=== PATIENT | male | born 1960 | race Caucasian/White ===

== ENCOUNTER 2016-09-11 19:37 | Emergency (ER) ==
--- NOTE | 2016-09-11 20:22 | PROVIDER DOCUMENTATION ---
HPI-Abdominal Pain/GI Problem - General Source: patient - History of Present Illness-ABD Nature of Presenting Problems: 56 year old M presents to the ED with a cc of epigastric burning with an onset of 2 weeks ago. PT states that he has had x2 scrambled eggs in 2 days and 1 piece of cheese today. PT states that he has not had a EGD in 2 years. Pt states that he had an esophogeal rupture in 3 years ago due to acid reflux. Pt states that he has been taking Nexium and Prilosec with no relief. Abdominal Pain Onset Location: reports: epigastric Pain Radiation: reports: no radiation Quality of Pain: reports: burning Severity in ED: reports: mild Onset/Duration: reports: other (2 weeks) Timing: reports: still present Activities at Onset: reports: none Modifying Factors: improves with: nothing Bruising or Bleeding Gums?: No Similar Symptoms Previously?: Yes Recently seen or treated by another doctor?: No <Shanta Valdez - Last Filed: 09/11/16 21:18> <Hardik Szymanski - Last Filed: 09/11/16 21:37> - General Chief Complaint: Epigastric Pain Stated Complaint: STOMACHE PAIN Time Seen by Provider: 09/11/16 20:17 Allergies/Adverse Reactions: Patient Allergies Allergy/AdvReac Type Severity Reaction Status Date / Time haloperidol [From Haldol] AdvReac Intermediate Unknown Verified 03/28/16 14:36 haloperidol lactate * AdvReac Intermediate Unknown Verified 03/28/16 14:36 [From Haldol] Home Medications: Home Medication List Medication Instructions Recorded Confirmed Last Taken Type Sucralfate [Carafate Liquid] 1 tbs PO Q6HR PRN #8 oz 09/11/16 Unknown Rx Review of Systems - Adult - REVIEW OF SYSTEMS - ADULT Constitutional: denies: chills, fever Eyes: reports: no symptoms reported Ears, Nose, Mouth & Throat: reports: no symptoms reported Cardiovascular: denies: chest pain, palpitations Respiratory: denies: cough, shortness of breath Gastrointestinal: reports: abdominal pain. denies: diarrhea, nausea, vomiting Genitourinary: reports: no symptoms reported Musculoskeletal: reports: no symptoms reported Integumentary: reports: no symptoms reported Neurological: reports: no symptoms reported Psychiatric: reports: no symptoms reported Endocrine: reports: no symptoms reported Hematologic/Lymphatic: reports: no symptoms reported Allergic/Immunologic: reports: no symptoms reported All Other Systems: Reviewed and Negative <José MiguelShanta - Last Filed: 09/11/16 21:18> Past History - Adult - PAST MEDICAL HISTORY-ADULT Review of Records: reports: Nursing Assessment Review, Medications Reviewed Major Childhood Illnesses: reports: denies history Cardiovascular: reports: denies history Respiratory: reports: denies history Gastrointestinal: reports: GERD, other (esphogeal tear) Genitourinary: reports: denies history Musculoskeletal: reports: denies history Neurological: reports: denies history Psychiatric: reports: denies history Endocrine/Immune: reports: denies history Other Conditions: reports: denies history - PRIOR SURGERIES/PROCEDURES Surgical/Procedure History: reports: other (tube feeding, esophagle ) - IMMUNIZATION STATUS Childhood Immunizations: See Nurse Assessment Flu Vaccine: See Nurse Assessment - FAMILY HISTORY Family History: reviewed, not pertinent - SOCIAL HISTORY Smoking: non-smoker Substance Use: none/never Alcohol Use Frequency: never <Shanta Valdez - Last Filed: 09/11/16 21:18> Physical Exam-General - PHYSICAL EXAM-ADULT Initial Vital Signs Reviewed: Yes - CONSTITUTIONAL General Appearance: appears well, alert, no apparent distress - RESPIRATORY Respiratory: chest non-tender, lungs clear, normal breath sounds - CARDIOVASCULAR Cardiovascular: normal peripheral pulses, regular rate, rhythm, no edema - GASTROINTESTINAL (ABDOMEN) Abdominal Exam: normal bowel sounds, soft, tenderness (epigastric) - MUSCULOSKELETAL Extremity: normal inspection - SKIN Integumentary: normal color, normal turgor, warm/dry - PSYCHIATRIC Psych/Mental Status: normal mood/affect, normal thought content, normal thought process, oriented x 3 <Shanta Valdez - Last Filed: 09/11/16 21:18> Progress - XRAY 1 XRAY Study: Chest Impression: Normal (old scarring to left costophrenic angle, otherwise negative : Dr. Szymanski- ANDREW WRIGHT) <Shanta Valdez - Last Filed: 09/11/16 21:18> - PLAN OF CARE/RESULTS Progress/Plan/Lab Results: Laboratory Tests 09/11/16 09/11/16 20:43 20:43 WBC 7.34 RBC 5.27 Hgb 12.2 L Hct 38.7 L MCV 73.4 L MCH 23.1 L MCHC 31.5 L RDW Std Deviation 15.0 H Plt Count 249 MPV 10.2 Immature Gran % (Auto) 0.0 Neut % (Auto) 69.1 Lymph % (Auto) 17.4 L [place] % (Auto) 9.4 H Eos % (Auto) 3.8 Baso % (Auto) 0.3 Immature Gran # (Auto) 0.00 Neut # (Auto) 5.07 Lymph # (Auto) 1.28 [place] # (Auto) 0.69 H Eos # (Auto) 0.28 Baso # (Auto) 0.02 Sodium 136 Potassium 4.6 Chloride 103 Carbon Dioxide 27 Anion Gap 6 BUN 14 Creatinine 0.9 Estimated GFR/1.73 m2 > 60 BUN/Creatinine Ratio 16 Glucose 95 Calculated Osmolality 272 Calcium 10.0 Total Bilirubin 0.30 AST 12 ALT 11 Alkaline Phosphatase 78 Total Protein 6.6 Albumin 4.0 Globulin 3.0 Albumin/Globulin Ratio 2.0 Amylase 71 Orders Category Date Time Status cxr [CHEST-2 VIEWS] [RAD] Stat Exams 09/11/16 20:42 Taken AMYLASE [CHEM] Stat Lab 09/11/16 20:43 Completed CBC WITH DIFF [HEME] Stat Lab 09/11/16 20:43 Results COMPREHENSIVE METABOLIC PANEL [CHEM] Stat Lab 09/11/16 20:43 Completed Harleyo/Simi Alk/Al&mg Hydrox [G.i. Cocktail] Med 09/11/16 20:41 Discontinued 30 ml PO NOW ONE Sucralfate [Carafate Liquid] Med 09/11/16 20:41 Discontinued 1 gm PO NOW ONE Vital Signs - 24 hr 09/11/16 19:44 Temperature 98 F Pulse Rate 77 Respiratory 18 Rate Blood Pressure 152/99 O2 Sat by Pulse 99 Oximetry Vital Signs - 24 hr 09/11/16 19:44 Temperature 98 F Pulse Rate 77 Respiratory 18 Rate Blood Pressure 152/99 O2 Sat by Pulse 99 Oximetry - XRAY 1 XRAY Study: Chest Impression: Normal <Hardik Szymanski - Last Filed: 09/11/16 21:37> Departure <Shanta Valdez - Last Filed: 09/11/16 21:18> - Departure Time of Disposition Order: 21:36 Certified Medical Emergency: Emergent <Hardik Szymanski - Last Filed: 09/11/16 21:37> - Departure DIAGNOSIS: GERD (gastroesophageal reflux disease) Qualifiers: Esophagitis presence: esophagitis presence not specified Qualified Code(s): K21.9 - Gastro-esophageal reflux disease without esophagitis Disposition: HOME 01 Condition: Stable Additional Instructions: ED Follow Up Instructions: You have been treated by a care provider in the Emergency Department. These instructions are being provided to you so you can have an understanding of how to care for yourself upon discharge. Upon discharge from the Emergency Department, you are responsible for making arrangements for follow-up care by a physician of your choice. Take all prescribed medications as directed. Return to the Emergency Department immediately for any new or worsening symptoms. You may call the Physician Referral phone number at [phone] to obtain a list of Physicians who are taking new patients. Prescriptions: Sucralfate [Carafate Liquid] 1 tbs PO Q6HR PRN #8 oz PRN Reason: Indigestion Attestation - Scribe Verification/Attestation Scribe:: Shanta Valdez Acting as Scribe for:: Hardik Szymanski Scribe documention review:: This chart was documented by a scribe and accurately reflects the service the provider performed and the decisions made by the provider. <Shanta Valdez - Last Filed: 09/11/16 21:18> Physician Attestation - Physician Attestation I, the provider, attest to the following statement:: Hardik Szymanski Physician documentation Attestation:: This documentation recorded by the scribe accurately reflects the service I personally performed and the decisions made by me. <Shanta Valdez - Last Filed: 09/11/16 21:18>
[2016-09-11] MEDS ORDERED: CARAFATE LIQUID PO ONE (20:41)
[2016-09-11] MEDS ORDERED: G.I. COCKTAIL PO ONE (20:41)
[2016-09-11 21:14] LABS: AGAP 6; ALKALINE PHOSPHATASE 78 U/L (32-122); AMYLASE 71 U/L (20-200); BASO% 0.3 % (0.0-0.8); BUN 14 mg/dL (8-22); CHLORIDE 103 mmol/L (98-107); COSMO 272; EOS# 0.28 X1000 (0.0-0.7); EOS% 3.8 % (0.0-10.0); GOT 12 U/L (10-34); GPT 11 U/L (10-44); HEMATOCRIT 38.7 % (42.0-52.0); HEMOGLOBIN 12.2 g/dL (14.0-18.0); LYMPH# 1.28 X1000 (1.2-3.4); LYMPH% 17.4 % (20.5-51.1); MANUAL DIFF NEEDED? YES; MCH 23.1 PG (27-31); MCHC 31.5 g/dL (33-37); MCV 73.4 FL (81-99); MONO# 0.69 X1000 (0.11-0.59); MONO% 9.4 % (1.7-9.3); MPV 10.2 FL (7.4-10.4); NEUT% 69.1 % (42.2-75.2); PLT 249 X1000 (130-400); POTASSIUM 4.6 mmol/L (3.5-5.1); RBC 5.27 XMIL (4.7-6.1); SODIUM 136 mmol/L (136-145); TCO2 27 mmol/L (25-35); TOTAL PROTEIN 6.6 g/dL (6.3-8.3)
[2016-09-11 21:42] LABS: EOS 2 % (1-10); LYMPHS 20 % (21-51); MONO 9 % (1-9)
[2016-09-11 21:43] LABS: HYPOCHROM 1+
[2016-09-11 21:54] VITALS: BP 127/77
--- NOTE | 2016-09-12 09:41 | Diag Imaging Result Document ---
PROCEDURE NAME: CHEST-2 VIEWS - 09/11/2016 PA AND LATERAL RADIOGRAPH OF THE CHEST: COMPARISON: 01/29/2016. FINDINGS: There is very minimal blunting of the costophrenic angles bilaterally. Trace effusion versus chronic pleural scarring should be considered. Cardiac silhouette and central vasculature are unremarkable. IMPRESSION: Minimal blunting of the costophrenic angles suggesting trace effusions versus chronic pleural scarring.
== END 2016-09-11 21:53 | disposition home or self-care (01) ==
LOC: P.ED 19:37
DX: K21.9 Gastro-esophageal reflux disease without esophagitis (principal); R10.13 Epigastric pain
CPT/HCPCS: 71020; 80053; 82150; 85025